=== PATIENT | female | born 1940 | race Caucasian/White ===

== ENCOUNTER 2025-03-11 08:35 | Outpatient (CLI) | payer MEDICARE, SELFPAY ==
--- NOTE | ~2025-03-11 | CT_ITS ---
CT of the Abdomen and Pelvis: Indication: Hydronephrosis Technique: 2.5 mm axial scans were obtained through the abdomen and pelvis prior to and following in travenous administration of 130 cc of Omnipaque 350. Dose reduction technique was used on this scan b y utilizing automated exposure control and iterative reconstruction technique. The dose-length produc t (DLP) was 2219.56 mGy-cm. Findings: Scans through the lung bases are unremarkable. The liver, spleen, pancreas, gallbladder, adrenals and right kidney are within normal limits. Left pa rapelvic renal cysts are present. There are atherosclerotic calcifications of the aorta. No lymphade nopathy. No bowel obstruction or bowel wall thickening. There is no evidence to suggest acute appendicitis. Images through the pelvis were performed. Urinary bladder unremarkable. Status post hysterectomy. No pelvic mass. No ascites. Impression: No hydronephrosis. Left parapelvic renal cysts. Reviewed, dictated and finalized at [facility]. Impression: No hydronephrosis. Left parapelvic renal cysts.
--- OUTSIDE RECORDS SUMMARY | 2025-03-11 08:54 | XMS_ITS | Encounter Summary ---
Author Organization [facility] Address [facility] [place] [address] Care Team Providers Care Hand Bookbinder Name Role Phone Durga Fischer MD Primary Care Provider + Reason for Visit * Auth/Cert Specialty Diagnoses / Procedures Referred By Contac t Referred To Contact Diagnoses Family history of colon cancer Personal history of colonic polyps Encounter for screening colonoscopy Family history of colon cancer [Z80.0] Personal history of colonic polyps [Z86.010] Encounter for screening colonoscopy [Z12.11] Procedures VA COLONOSCOPY FLX DX W/COLLJ SPEC WHEN PFRMD COLONOSCOPY Referral ID Status Reason Start Date Expiration Date Visits Re quested Visits Authorized [id number] 1 1 Encounter Details Date Type Department Care Team (Late st Contact Info) Description 01/28/2025 Hospital Encounter [facility] [address] [place] [address] Darian Sauer MD [address] [place] [address] [facility] [address] [place] [address] Social History Tobacco Use Types Packs/Day Years Used Date Smoking Tobacco: Never Smokeless Tobacco: Never Alcohol Use Standard Drinks/Week Comments No 0 (1 standard drink = 0.6 oz pur e alcohol) Comments No Sex and Gender Information Value Date Recorded Sex Assigned at Not on file 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 Gender Identity Not on file Sexual Orientation Not on file documented as of this encounter Plan of Treatment Not on file documented as of this encounter Visit Diagnoses Diagnosis Family history of colon cancer Family history of malignant neoplasm of gastrointestinal tract Personal history of colonic polyps Encounter for screening colonoscopy documented in this encounter Admitting Diagnoses Diagnosis Family history of colon cancer Family history of malignant neoplasm of gastrointestinal tract Personal history of colonic polyps Encounter for screening colonoscopy documented in this encounter Care Teams Hand Bookbinder Relationship Specialty Start Date End Date Durga Fischer MD [address] [place] [place] [address] PCP - General Internal Medicine 04/29/24 documented as of this encounter
--- OUTSIDE RECORDS SUMMARY | 2025-03-11 08:55 | XMS_ITS | Encounter Summary ---
Author Organization [facility] Address [address] [place] [address] Phone Care Team Providers Care Cotton Washer Name Role Phone Ronn Del Valle MD Primary Care Provider [phone] Graham Clemens MD Unavailable Selma Cadet MD Unavailable [phone] Ramesh Weiss MD Unavailable [phone] Geraldine Blue MD Unavailable [phone] Fernando Gonzales MD Unavailable Katey Castillo MD Unavailable [phone] Durga Fischer MD Primary Care Provider [phone] Reason for Visit * Reason Comments Medication Refill Encounter Details Date Type Department Care Team (Late st Contact Info) Description 12/25/2020 Refill [facility] [address] [place] [address] Ronn Del Valle MD [address] [place] [address] Medication Refill Social History Tobacco Use Types Packs/Day Years Used Date Smoking Tobacco: Former Smokeless Tobacco: Former Alcohol Use Standard Drinks/Week Comments No 0 (1 standard drink = 0.6 oz pur e alcohol) PHQ-2 Answer Date Recorded PHQ-2 Score 0 07/26/2019 Sexually Active Control Partners Comments Never Comments No Sex and Gender Information Value Date Recorded Sex Assigned at Not on file Legal Sex Female 8:52 PM CDT Gender Identity Not on file Sexual Orientation Not on file documented as of this encounter Plan of Treatment Not on file documented as of this encounter Visit Diagnoses Not on filedocumented in this encounter Additional Health Concerns Infection Onset Date Last Indicated Resolved Time COVID - 19 07/22/2021 07/22/2021 07/29/2021 7:03 AM CDT Assessment Noted Time PHQ-9 Depression Total Score: 0 12/04/19 20 9:00 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 documented as of this encounter Care Teams Cotton Washer Relationship Specialty Start Date End Date Ronn Del Valle MD [address] [place] [address] PCP - General Internal Medicine 03/14/16 05/07/24 Durga Fischer MD [address] [place] [address] PCP - General Internal Medicine 05/08/24 Graham Clemens MD [address] [place] [address] Consulting Physician Orthopaedic Sports Medicine 05/29/17 Selma Cadet MD [address] [place] [address] Consulting Physician Dermatology 03/17/18 Ramesh Weiss MD [address] [place] [address] Consulting Physician Urology 03/17/18 Geraldine Blue MD [address] [facility] [address] [place] [address] Consulting Physician Neurological Surgery 05/27/19 [place] [address] [facility] [address] [address] Consulting Physician Pain Medicine-Pain Management 04/01/20 Katey Castillo MD [address] [facility] [address] [address] Consulting Physician Plastic Surgery 03/28/22 documented as of this encounter
--- OUTSIDE RECORDS SUMMARY | 2025-03-11 08:55 | XMS_ITS | Clinical Summary ---
Author Organization [facility] Address [address] [place] [address] Phone Care Team Providers Care Patient Registration Specialist Name Role Phone Graham Clemens MD Unavailable [phone] Selma Cadet MD Unavailable [phone] Ramesh Weiss MD Unavailable Geraldine Blue MD Unavailable [phone] Fernando Gonzales MD Unavailable Katey Castillo MD Unavailable [phone] Durga Fischer MD Primary Care Provider [phone] Allergies Active Allergy Reactions Criticality Noted Date Comments Codeine Hallucinations 03/14/2016 Medications calcium carbonate-vitamin D 600-400 MG-UNIT Tablet Take 1 Tablet by mouth daily. Active TRIAMCINOLONE ACETONIDE, TOP, EX by Intra-articu lar route. Active pantoprazole (PROTONIX) 40 MG Tablet Delayed ResponseIndications :Gastroesophageal reflux disease without esophagitis Take 1 Tablet by mouth daily. 90 Tablet 3 3 Active fluticasone (FLONASE) 50 MCG/ACT SuspensionIndicatio ns:PNAR (perennial non-allergic rhinitis) 2 sprays in each nostril once daily (best after shower/ bath) 47.4 mL 3 3 Active tolterodine (DETROL LA) 4 MG CAPSULE SR 24 HRIndications:Urge urinary incontinence TAKE 1 CAPSULE NIGHTLY 90 Capsule 3 3 Active ipratropium (ATROVENT) 0.03 % SolutionIndications :PNAR (perennial non-allergic rhinitis) 2 Sprays by Nasal route 2 times daily. 30 mL 2 3 Active simvastatin (ZOCOR) 40 MG TabletIndications:M ixed hyperlipidemia TAKE 1 TABLET EVERY EVENING 90 Tablet 3 4 Active Gemtesa 75 MG Tablet 4 Active carvedilol (COREG) 25 MG Tablet TAKE 1 TABLET TWICE A DAY 180 Tablet 3 4 Active meloxicam (MOBIC) 15 MG TabletIndications:A rthritis TAKE 1 TABLET DAILY 90 Tablet 4 Active Active Problems Problem Noted Date Diagnosed Date Peripheral polyneuropathy 06/07/2023 Gastroesophageal reflux disease without esophagi tis 06/07/2023 PNAR (perennial non-allergic rhinitis) 3 Irritant contact dermatitis 04/16/2023 Irritable bowel syndrome with constipation 10/17 Trochanteric bursitis of left hip 03/28/2022 Numbness and tingling in both hands 02/26/2022 Spinal stenosis of lumbar re gion without neurogenic claudication 10/07/2018 Idiopathic peripheral neuropathy 05/22/2016 Urge urinary incontinence 05/22/2016 Varicose veins of both lower extremities 015 Asthma 04/10/2014 Overview (10/23/2018): Overview: Asthma Hypertension, essential Mixed hyperlipidemia Arthritis Resolved Problems Problem Noted Date Diagnosed Date Resolved Date Complication of surgical procedure 03/28/2022 11/11/2023 Adenomatous polyp of colon 09/27/2012 0 08/22/2020 Overview (10/23/2018): Overview: Adenomatous colon polyp Immunizations Immunization Administration Dates Next Due Covid-19, Mrna, Lnp-s, PF, 1 00 mcg/0.5 mL Dose (Moderna) 02/03/2021,01/06/2021 Influenza Vaccine greater than 3 yrs 08/24/2016, 09/15/2015 Influenza Vaccine, Quadrivalent, PF 08/18/2018,1 Influenza, High-dose, Quadrivalent 08/07/2023,,08/11/2020 Influenza, Injectable, Mdck,quadrivalent,with Preservative 08/25/2019 Influenza, Quadrivalent, Adjuvanted 08/14/2022 Influenza, Seasonal, Injecta ble, Undefined 08/14/2018,08/24/2016,08/10/2015,08/27,08/12/2013 Influenza, high-dose, trivalent, PF 08/11/2020,0 08/06/2016,08/03/2016 Pneumococcal Vaccine - 13 Valent 07/26/2016,10/26 Pneumococcal Vaccine Adult - 23 Valent 2,11/25/1999 Pneumococcal conjugate PCV20 , polysaccharide [id number] conjugate, adjuvant, PF 08/07/2023 TDAP Vaccine 10/28/2015 Td Vaccine (preservative free) 01/07/2004 Zoster Vaccine, live 07/31/2013 Family History Medical History Relation Name Comments Congestive Heart Failure Father Heart Attack Mother Cancer Sister 2 Throat Relation Name Status Comments Father Mother Sister 1 Alive Sister 2 Social History Tobacco Use Types Packs/Day Years Used Date Smoking Tobacco: Former Smokeless Tobacco: Former Tobacco Cessation:Counseling Given: Not Answered Alcohol Use Standard Drinks/Week Comments No 0 (1 standard drink = 0.6 oz pur e alcohol) PHQ-2 Answer Date Recorded Total Score - Questions 1-9 0 02/23 Sexually Active Control Partners Comments Never Comments No Sex and Gender Information Value Date Recorded Sex Assigned at Not on file Legal Sex Female 8:52 PM CDT Gender Identity Not on file Sexual Orientation Not on file Last Filed Vital Signs Vital Sign Reading Time Taken Comments Blood Pressure 132/80 03/06/2024 2:39 PM CDT Pulse 80 03/06/2024 2:39 PM CDT Temperature 36.4 C (97.5 F) 03/06/2024 2:39 PM CDT Respiratory Rate 14 03/06/2024 2:39 PM CDT Oxygen Saturation 98% 03/06/2024 2:39 PM CDT Inhaled Oxygen Concentration - - Weight 90.4 kg (199 lb 6.4 oz) 03/06/2024 2:39 P M CDT Height 170.2 cm (5' 7 ) 03/06/2024 2:39 PM CDT Body Mass Index 31.23 03/06/2024 2:39 PM CDT Plan of Treatment Health Maintenance Due Date Last Done Comments Zoster Immunization (2 of 3) 09/25/2013 07/31/2013 Respiratory Syncytial Virus (RSV) Immunization (Adult) (1 - 1-dose 75+ series) 2015 DEXA Bone Density 12/04/2020 12/04/2018, , 09/02/2014, Additional history exists Influenza Immunization (#1) 07/26/202407/26, 08/14/2022, 08/14/2021, Additional history exists SARS-COV-2 Immunization ( season) 2024 08/29/2023, 08/14/2022, 02/23/2022, Additional history exists Td Immunization Every 10 Years (Adults With 1 Tdap) 10/28/2025 10/28/2015, 01/07/2004 Pneumococcal Immunization (50+ years) Completed 08/07/2023, 07/26/2016, 11/14/2015, Additional history exists Pneumococcal Immunization Combined Discontinued 08/07/2023, 07/26/2016, 11/14/2015, Additional history exists Hepatitis C Virus (HCV) Screening Completed 11/11/2023 Hepatitis B Immunization Aged Out No longer eligible based on patient's age to complete this topic Meningococcal Immunization (ACWY) Aged Out No longer eligible based on patient's age to complete this topic Rotavirus Immunization Aged Out No lo nger eligible based on patient's age to complete this topic Procedures Procedure Name Priority Date/Time Associated Diagnosis Comments UROLOGY CONSULT 02/24/2025 12:00 AM CDT HEPATITIS C ANTIBODY Routine 11/11/2023 9:49 AM ART LIBRARIAN Encounter for hepatitis C screening test for low risk patient DEXA SCAN Routine 12/04/2018 from Last 3 Months or Most Recently Relevant to Health Maintenance Results * UROLOGY CONSULT (02/24/2025 12:00 AM CDT) 02/24/2025 us Provider Scan GENERIC SCAN ORDERS CONSULT Kari l Result SCAN * HEPATITIS C ANTIBODY (11/11/2023 9:49 AM ART LIBRARIAN) hepatitis C antibody 0.06 <1 S/CO [facility] ARCH [id number] B 11/11/2023 8:36 PM ART LIBRARIAN [facility] Comment: Signal/Cutoff ratio < 0.79 is Nondetected Signal/Cutoff ratio 0.80-0.99 is Grayzone Signal/Cutoff ratio > 0.99 is Detected Supplemental assays are recommended if signal/cutoff ratio is >/=1.00. Signal/cutoff ratio result >/= 5.00 is 97% predictive of positivity for recombinant immunoblot assay (RIBA) and will be reported to the [place] Department of Public Health as required. Blood Venipuncture / Unknown 11/11/2023 9:49 AM ART LIBRARIAN 11/11/2023 9:49 AM ART LIBRARIAN us Ronn Del Valle MD CHEMISTRY ORDERABLES Kari l Result Performing Organization Address City/[facility]/ZIP Co de Phone Number [facility] [address] [place] [address], [place] * DEXA SCAN (12/04/2018) Anatomical Region Laterality Modality Other us Geraldine Blue MD MA - IMAGING Final Result from Last 3 Months or Most Recently Relevant to Health Maintenance Insurance [facility]IC[facility] Care Teams Patient Registration Specialist Relationship Specialty Start Date End Date Durga Fischer MD [address] [place] [address] PCP - General Internal Medicine 05/08/24 Graham Clemens MD Consulting Physician Orthopaedic Sports Medicine 05/29/17 Selma Cadet MD [address] [place] [address] Consulting Physician Dermatology 03/17/18 Ramesh Weiss MD [address] [place] [address] Consulting Physician Urology 03/17/18 Geraldine Blue MD [address] [facility] [address] [place], [place] [address] Consulting Physician Neurological Surgery 05/27/19 [place] [address] [place] [address] Consulting Physician Pain Medicine-Pain Management 04/01/20 Katey Castillo MD NPI: [id number] [place] [address] [address] [address] Consulting Physician Plastic Surgery 03/28/22
--- OUTSIDE RECORDS SUMMARY | 2025-03-11 08:55 | XMS_ITS | Encounter Summary ---
Author Organization [facility] Address [address] [place] [address] Phone Care Team Providers Care Anesthesiologist Attending Name Role Phone Ronn Del Valle MD Primary Care Provider [phone] Graham Clemens MD Unavailable Selma Cadet MD Unavailable [phone] Ramesh Weiss MD Unavailable Geraldine Bleu MD Unavailable [phone] Fernando Gonzales MD Unavailable Katey Castillo MD Unavailable [phone] Durga Fischer MD Primary Care Provider [phone] Reason for Visit * Reason Comments Medication Refill Encounter Details Date Type Department Care Team (Late st Contact Info) Description [facility] [address] [place] [address] Ronn Del Valle MD [address] [place] [address] Medication Refill Social History Tobacco Use Types Packs/Day Years Used Date Smoking Tobacco: Former Smokeless Tobacco: Former Alcohol Use Standard Drinks/Week Comments No 0 (1 standard drink = 0.6 oz pur e alcohol) PHQ-2 Answer Date Recorded Total Score - Questions 1-9 0 04/0 03/2021 Sexually Active Control Partners Comments Never Comments No Sex and Gender Information Value Date Recorded Sex Assigned at Not on file Legal Sex Female 8:52 PM CDT Gender Identity Not on file Sexual Orientation Not on file COVID-19 Exposure Response Date Recorded In the last month, have you been in contact with someone who was confirmed or suspected to have Coronavirus / COVID-19? No / Unsure 02/27/2021 8:23 AM CDT documented as of this encounter Plan of Treatment Not on file documented as of this encounter Visit Diagnoses Not on filedocumented in this encounter Additional Health Concerns Infection Onset Date Last Indicated Resolved Time COVID - 19 07/22/2021 07/22/2021 07/29/2021 7:03 AM CDT Assessment Noted Time PHQ-9 Depression Total Score: 0 02/28/20 8:00 AM CDT documented as of this encounter Care Teams Anesthesiologist Attending Relationship Specialty Start Date End Date Ronn Del Valle MD [address] [place] [address] PCP - General Internal Medicine 03/14/16 05/07/24 Durga Fischer MD [address] [place] [address] PCP - General Internal Medicine 05/08/24 Graham Clemens MD [address] [place] [address] Consulting Physician Orthopaedic Sports Medicine 05/29/17 Selma Cadet MD [address] [place] [address] Consulting Physician Dermatology 03/17/18 Ramesh Weiss MD [address] [place] [address] Consulting Physician Urology 03/17/18 Geraldine Blue MD [address] [facility] [address] [place], [place] [address] Consulting Physician Neurological Surgery 05/27/19 [place] [address] [address] [facility] [address] [place] [address] Consulting Physician Pain Medicine-Pain Management 04/01/20 Katey Castillo MD [address] [facility] [address] [address] Consulting Physician Plastic Surgery 03/28/22 documented as of this encounter
--- OUTSIDE RECORDS SUMMARY | 2025-03-11 08:55 | XMS_ITS | Patient Health Record ---
Author Organization [facility] Address [address] [address] Care Team Providers Care Diesel Electrician Name Role Phone Ronn Del Valle Primary Care Provider Unavail able PORSHA WARREN Unavailable [phone] Geraldine Blue MD Unavailable Unavailable Allergies Allergen (clinical drug ingredient) Drug/Non Drug Allergy documented on EMR Reaction Allergy Type Onset Date Status codeine Codeine (uncoded) Unknown Allergy Ac tive Reason For Referral No Information Medications Medication SIG (Take, Route, Fr equency, Duration) Notes Start Date End Date Status Carvedilol 25 MG twice Orally daily Active Simvastatin 40 MG 1 tablet in the even ing Orally Once a day Active Indapamide 1.25 MG 1 tablet in the morn ing Orally Once a day Active Meloxicam 15 MG 1 capsule Orally Onc e a day for 90 days Active Gabapentin 300 MG 1 capsule Orally TID . Start with One cap at bedtime x1 week, then increase to 2 at PM x1 week. Then increase to 1 in AM and 2 in PM. 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) Active confirmed Problem [id number] Primary osteoarthritis of left knee (M17.12) Active confirmed Problem 95150094 Post-laminectomy syndrome (M96.1) Active confirmed Problem 40042036 Peripheral polyneuropathy (G62.9) Active confirmed Problem 95486830 Spinal stenosis of lumbar region without neurogenic claudication (M48.061) Active confirmed Problem 6258218 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 Problem 065345650 Osteoarthrosis, 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) Active confirmed Plan Of Treatment No Information Insurance Providers Payer Name Payer Address Payer Phone Subscriber Number Group Number Insured Name Patient Relationship to Insured Coverage Start Date Coverage End Date MEDIC[place] [address] [address] [place] [address] [id number] BENEDICTO CHAPARRO Self - patient is the insured [facility] [address] [place] [address] [id number] BENEDICTO CHAPARRO Self - patient is the insured Medical (General) History Medical History History ICD Code Hypertension High cholesterol Surgical History Surgery Date(Month/Year) Hernia 2017
--- OUTSIDE RECORDS SUMMARY | 2025-03-11 08:55 | XMS_ITS | CONTINUITY OF CARE DOCUMENT ---
Author Name nannettemedina, nannettemedina Address Unknown Organization [facility] Address [address] [facility] [address] [place] [address] Phone [phone] Care Team Providers Care Resolution Rep Name Role Phone Amarjit Otoole MD Unavailable VINCENT CASTILLO MD Unavailable VINCENT CASTILLO MD Unavailable PROBLEMS Condition Status Date Provider Notes Cardiology examination active Amarjit Otoole MD Hyperlipidemia active Amarjit Otoole MD Hypertension active Amarjit Otoole MD Decreased dorsalis pedis pulse- L active Us cleo Otoole MD Neuropathy active Amarjit Otoole MD Leg numbness, L active Amarjit Otoole MD ENCOUNTERS Date Type Provider Location Encounter Diag nosis 12/17 - 12/17 In-person encounter Office Visit Amarjit Otoole MD [facility] - 11/25 In-person encounter Office Visit Amarjit Otoole MD [facility] Cardiology examinationHyperlipidemiaHypertensionDecreased dorsalis pedis pulse- LNeuropathyLeg numbness, L VITAL SIGNS Date Observation Value Provider Body Mass Index (Ratio) 30.54 kg/m2 Tamela Otoole MD respiratory rate E&M 12 /min Cyril vee blood pressure, diastolic 82 mm[Hg] Bhavya Fitchanan blood pressure, systolic 136 mm[Hg] Vip in [facility] oxygen saturation, oximetry 96 % [facility] pulse rate 82 /min [facility] weight E&M 195 [lb_av] [facility] blood pressure, cuff size regular Vi jeromy [facility] height E&M 67 [in_i] [facility] Body Mass Index (Ratio) 31.63 kg/m2 Tamela Otoole MD blood pressure, diastolic 86 mm[Hg] Li nkLogic blood pressure, systolic 138 mm[Hg] Marylu kLogic blood pressure, cuff size regular Jose courtney [facility] blood pressure, diastolic 86 mm[Hg] Jose harleya [facility] blood pressure, systolic 138 mm[Hg] Isatu la [facility], oximetry 96 % Val [facility] pulse rate 64 /min Val [facility] height E&M 67 [in_i] Val [facility] weight E&M 202 [lb_av] Val Ruple ALLERGIES No Known Drug Allergies HISTORY OF MEDICATION USE Medication Status Instructions Dates Provider Indications Com ments nebivolol 20 mg tablet active Amarjit Otoole MD pantoprazole 40 mg tablet,delayed release (DR/EC) active Amarjit Otoole MD simvastatin 40 mg tablet active Amarjit Otoole MD meloxicam 15 mg tablet active Amarjit Otoole MD INSURANCE PROVIDERS Payer name Policy type / Coverage type [place] [employer] democrat ID [facility] [id number] [place] MEDIC[place] Medicare [id number] TREATMENT PLAN Date Name Performer Cardiology: H er updated medication list for this problem includes: Simvastatin 40 Mg Tablet (Simvastatin) T his visit has been a part of the consistent, comprehensive, and ongoing management of the chronic medical condition(s) listed above for the patient. Amarjit Otoole MD Cardiology: H er updated medication list for this problem includes: Nebivolol 20 Mg Tablet (Nebivolol) BP today: 136/82 P rior BP: 138/86 (09/24/2024) This visit has been a part of the consistent, comprehensive, and ongoing management of the chronic medical condition(s) listed above for the patient. Amarjit Otoole MD Cardiology:multifact orial, but in part due to her neuropathy. I recommend she has neurology consult as she continues to experience difficulties with walking Amarjit Otoole MD Cardiology:Recommend a consult with neuro Amarjit Otoole MD Cardiology:ABIs were unremarkabl e Amarjit Otoole MD Cardiology:check venous reflux a nd JUN Amarjit Otoole MD Cardiology:Will chec k a venous reflux and JUN Amarjit Otoole MD Date Name Venous Doppler Bilat eral LE - Reflux Arterial Duplex Bi-L ower EX HISTORY OF PROCEDURES Procedure Date Procedure Name Provider Procedure Notes S tatus Complex e/m visit add on Amarjit Otoole MD completed EKG Amarjit Otoole MD completed
--- OUTSIDE RECORDS SUMMARY | 2025-03-11 08:55 | XMS_ITS | Clinical Summary ---
Author Organization [facility] Address [address] [place] [address] Phone Care Team Providers Care Director Home Health Name Role Phone Ronn Del Valle MD Primary Care Provider Allergies Active Allergy Reactions Criticality Noted Date Comments Codeine Anaphylaxis High 09/29/2018 Medications carvedilol (COREG) 25 mg tablet Take 25 mg by mouth 2 times daily with meals. Active gabapentin (NEURONTIN) 300 mg capsule Take 300 mg by mouth daily at bedtime. Active indapamide (LOZOL) 1.25 mg tablet Take 1.25 mg by mouth daily early morning babysitter. Active meloxicam (MOBIC) 15 mg tablet Take 15 mg by mouth daily. Active simvastatin (ZOCOR) 40 mg tablet Take 40 mg by mouth late in the day. Active tolterodine (DETROL LA) 2 mg Extended Release 24 hour capsule Take 2 mg by mouth daily. Active cyanocobalamin, vitamin B-12, (VITAMIN B-12 ORAL) Take 1,000 Units by mouth daily. Active omega-3 fatty acids (FISH OIL ORAL) Take 1,000 Units by mouth daily. Active calcium carbonate/vitam in D3 (CALCIUM + D ORAL) Take 600 mg by mouth daily. Active vitamin E 400 unit capsule Take 400 Units by mouth daily. Active HYDROcodone-charlotte taminophen (NORCO) 5-325 mg tablet Take 1-2 Tablets by mouth every 4 hours as needed for Pain. Max Daily Amount: 12 Tablets 60 Tablet 10/06/2018 Active tiZANidine (ZANAFLEX) 4 mg Tablet Take 1 Tablet (4 mg) by mouth every 6 hours as needed for Spasm. 60 Tablet 1 10/06/2018 Active Active Problems Problem Noted Date Diagnosed Date Lumbar stenosis 10/07/2018 Immunizations Immunization Administration Dates Next Due Influenza Seasonal Unspecified Formulation IM Social History Tobacco Use Types Packs/Day Years Used Date Smoking Tobacco: Former Cigarettes Q uit: 09/29/1968 Smokeless Tobacco: Never Alcohol Use Standard Drinks/Week Comments No 0 (1 standard drink = 0.6 oz pur e alcohol) Comments No Sex and Gender Information Value Date Recorded Sex Assigned at Not on file Legal Sex Female 11:08 AM CDT Gender Identity Not on file Sexual Orientation Not on file Last Filed Vital Signs Vital Sign Reading Time Taken Comments Blood Pressure 91/52 10/07/2018 8:56 AM SCREW DRIVER OPERATOR Pulse 70 10/07/2018 8:19 AM SCREW DRIVER OPERATOR Temperature 36.4 C (97.6 F) 10/07/2018 8:19 AM SCREW DRIVER OPERATOR Respiratory Rate 18 10/07/2018 8:19 AM SCREW DRIVER OPERATOR Oxygen Saturation 95% 10/07/2018 8:19 AM SCREW DRIVER OPERATOR Inhaled Oxygen Concentration - - Weight 89.8 kg (198 lb) 10/06/2018 8:20 AM SCREW DRIVER OPERATOR Height 170.2 cm (5' 7 ) 10/06/2018 8:20 AM SCREW DRIVER OPERATOR Body Mass Index 31.01 10/06/2018 8:20 AM SCREW DRIVER OPERATOR Plan of Treatment Health Maintenance Due Date Last Done Comments ZOSTER VACCINE (1 of 2) 1990 RSV VACCINE (60+ or ) (1 - 1-dose 75+ series) 2015 INFLUENZA VACCINE (#1) 2024 8, 08/14/2018, 08/26/2017, Additional history exists DTAP/TDAP/TD VACCINES (2 - T d or Tdap) 10/28/2025 10/28/2015, 01/07/2004 PNEUMOCOCCAL VACCINE 50+ YEARS Completed 0 07/26/2016, 11/14/2015, 09/19/2012, Additional history exists OSTEOPOROSIS SCREENING Completed 12/04/2018 Medical Devices Implanted Type Area Signal Processing Engineer Device Identifier Shelf Expiration Date Model / Serial / Lot Barrier Gelfilm [id number] - [id number] Implanted:Qty : 1 on 10/06/2018 by Geraldine Blue MD at [facility] Adhesion Barrier Spine Lumbar PFIZER- PHARM [id number] 10/24/2020 [id number] 703-[id number] / / [id number] Hemostatic Surgiflo 8ml W/Thrombin 2994 - [id number] Implanted:Qty : 1 on 10/06/2018 by Geraldine Blue MD at [facility] Hemostatic Spine Lumbar [employer] 03/24/2020 [id number] / / [id number] Procedures Procedure Name Priority Date/Time Associated Diagnosis Comments XR DEXA BONE DENSITY AXIAL 1 OR MORE SITES Routine 12/04/2018 8:59 AM SCREW DRIVER OPERATOR Osteoporosis from Last 3 Months or Most Recently Relevant to Health Maintenance Results * XR DEXA BONE DENSITY AXIAL 1 OR MORE SITES (12/04/2018 8:59 AM SCREW DRIVER OPERATOR) Anatomical Region Laterality Modality Digital Radiogra phy 12/04/2018 8:59 AM SCREW DRIVER OPERATOR Impressions 12/04/2018 9:03 AM SCREW DRIVER OPERATOR IMPRESSION: This is a summary page. Please refer to the complete detailed report found in the Imaging Section of the [facility] EMR. Normal BMD. Lumbar Spine: T-Score: 1.5 Left Femoral Neck: T-Score: -0.8 Left Total Femur: T-Score: -0.4 Right Femoral Neck: T-Score: -0.7 Right Total Femur: T-Score: -0.2 Left Forearm: T-Score: -0.5 Comments: L3-L4 excluded because of statistical variation. Statistical change: No prior exam is available. FRAX FRACTURE RISK ASSESSMENT: Risk factors: History of fracture as an adult. 10 Year Probability Of Fracture Major Osteoporotic: 14.8 % Hip: 2.1 % Comparison population: [place], Race: White A major osteoporotic fracture is defined as a fracture of the spine, forearm, hip or shoulder. Definitions: Normal: T-score above -1.0 Osteopenia T-score less than -1.0 and above -2.5 Osteoporosis: T-score <= -2.5 Follow-up Recommendations: Patients without high risk factors for osteoporosis T-score -1.0 to -1.5 - Consider repeat BMD in 5-10 years T-score -1.5 to - 2.0 - Consider repeat BMD in 3-5 years T-score -2.0 to - 2.5 - Consider repeat BMD every 2 years Patients on treatment for osteoporosis 1-2 years after initiation of treatment and every 2 years thereafter D[address] Dr[address] Homero Farley MD DICTATION LOCATION: 12/04/2018 9:03 AM SCREW DRIVER OPERATOR EXAMINATION: BONE DENSITY STUDY (DXA) DATE: 12/04/2018 8:59 AM HISTORY: 78 years Female. Postmenopausal. PROCEDURE: Planar images of the lumbar spine, hip(s) and forearm(s) using a LUNAR DEXA scanner for bone mineral density determination (BMD). FINDINGS: Lumbar Spine (L1-L2): T-Score: 1.5 1.340 g/sq cm Left Femoral Neck: T-Score: -0.8 0.928 g/sq cm Left Total Femur: T-Score: -0.4 Right Femoral Neck: T-Score: -0.7 0.946 g/sq cm Right Total Femur: T-Score: -0.2 Left 33% Radius: T-Score: -0.5 0.829 g/sq cm Procedure Note Homero Farley MD - 12/04/2018 EXAMINATION: BONE DENSITY STUDY (DXA) DATE: 12/04/2018 8:59 AM HISTORY: 78 years Female. Postmenopausal. PROCEDURE: Planar images of the lumbar spine, hip(s) and forearm(s) using a LUNAR DEXA scanner for bone mineral density determination (BMD). FINDINGS: Lumbar Spine (L1-L2): T-Score: 1.5 1.340 g/sq cm Left Femoral Neck: T-Score: -0.8 0.928 g/sq cm Left Total Femur: T-Score: -0.4 Right Femoral Neck: T-Score: -0.7 0.946 g/sq cm Right Total Femur: T-Score: -0.2 Left 33% Radius: T-Score: -0.5 0.829 g/sq cm IMPRESSION: This is a summary page. Please refer to the complete detailed report found in the Imaging Section of the [facility] EMR. Normal BMD. Lumbar Spine: T-Score: 1.5 Left Femoral Neck: T-Score: -0.8 Left Total Femur: T-Score: -0.4 Right Femoral Neck: T-Score: -0.7 Right Total Femur: T-Score: -0.2 Left Forearm: T-Score: -0.5 Comments: L3-L4 excluded because of statistical variation. Statistical change: No prior exam is available. FRAX FRACTURE RISK ASSESSMENT: Risk factors: History of fracture as an adult. 10 Year Probability Of Fracture Major Osteoporotic: 14.8 % Hip: 2.1 % Comparison population: [place], Race: White A major osteoporotic fracture is defined as a fracture of the spine, forearm, hip or shoulder. Definitions: Normal: T-score above -1.0 Osteopenia T-score less than -1.0 and above -2.5 Osteoporosis: T-score <= -2.5 Follow-up Recommendations: Patients without high risk factors for osteoporosis T-score -1.0 to -1.5 - Consider repeat BMD in 5-10 years T-score -1.5 to - 2.0 - Consider repeat BMD in 3-5 years T-score -2.0 to - 2.5 - Consider repeat BMD every 2 years Patients on treatment for osteoporosis 1-2 years after initiation of treatment and every 2 years thereafter D[address] by Dr. Homero Farley MD DICTATION LOCATION: 1 Geraldine Blue MD DIAGNOSTIC IMAGING ORDERABLES F inal Result from Last 3 Months or Most Recently Relevant to Health Maintenance Insurance MEDICARE PART A AND B [facility] Advance Directives For more information, please contact: [phone] * Full Code (Latest Code Status on File) Date Activated Date Inactivated Comments 10/06/2018 9:44 AM 10/07/2018 2:10 PM * Full Code Date Activated Date Inactivated Comments 10/06/2018 8:49 AM 10/06/2018 9:43 AM Care Teams Director Home Health Relationship Specialty Start Date End Date Ronn Del Valle MD [address] [address] PCP - General Internal Medicine 09/29/18
--- OUTSIDE RECORDS SUMMARY | 2025-03-11 08:55 | XMS_ITS | Encounter Summary ---
Author Organization [facility] Address [address] [place] [address] Phone Care Team Providers Care Television Parts Tester Name Role Phone Ronn Del Valle MD Primary Care Provider [phone] Graham Clemens MD Unavailable [phone] Selma Cadet MD Unavailable [phone] Ramesh Weiss MD Unavailable Geraldine Blue MD Unavailable [phone] Fernando Gonzales MD Unavailable Katey Castillo MD Unavailable [phone] Durga Fischer MD Primary Care Provider [phone] Reason for Visit * Reason Comments Medication Refill Encounter Details Date Type Department Care Team (Late st Contact Info) Description 02/18/2024 Refill [facility] - Primary Care - Emily [address] [place] [address] Ronn Del Valle MD [address] [place] [address] Medication Refill Social History Tobacco Use Types Packs/Day Years Used Date Smoking Tobacco: Former Smokeless Tobacco: Former Alcohol Use Standard Drinks/Week Comments No 0 (1 standard drink = 0.6 oz pur e alcohol) PHQ-2 Answer Date Recorded Total Score - Questions 1-9 0 05/0 02/2022 Sexually Active Control Partners Comments Never Comments No Sex and Gender Information Value Date Recorded Sex Assigned at Not on file Legal Sex Female 8:52 PM CDT Gender Identity Not on file Sexual Orientation Not on file documented as of this encounter Miscellaneous Notes * Telephone Encounter - Wai Méndez RN - 02/19/2024 8:12 AM CDT Medication(s) [facility] and signed [facility] Medication Refill Standing Order for Pediatricand Adult Patients. Requested Prescriptions Pending Prescriptions Disp Refills simvastatin (ZOCOR) 40 MG Tablet [Pharmacy Med Name: SIMVASTATIN TABS 40MG] 90 Tablet 3 Sig: TAKE 1 TABLET EVERY EVENING Hmg CoA Reductase Inhibitors Protocol Passed - 02/18/2024 11:34 PM Passed - Visit with relevant provider in past 12 months or upcoming 90 days Recent Visits Date Type Provider Dept 01/24/24 Office Visit Maira Michel APRN, MACHINE WOOD SANDER [facility] 11/20/23 Office Visit Selma Tran MD [facility] 11/11/23 Office Visit Ronn Del Valle MD [facility] 06/07/23 Office Visit Ronn Del Valle MD [facility] 04/16/23 Office Visit Ronn Del Valle MD [facility] Showing recent visits within past 365 days and meeting all other requirements Future Appointments No visits were found meeting these conditions. Showing future appointments within next 90 days and meeting all other requirements Passed - Lipid panel in past 12 months LDL Date Value Ref Range Status 11/11/2023 77 <130 mg/dL Final HDL CHOLESTEROL Date Value Ref Range Status 11/11/2023 61 >40 mg/dL Final CHOLESTEROL Date Value Ref Range Status 11/11/2023 152 <200 mg/dL Final TRIGLYCERIDES Date Value Ref Range Status 11/11/2023 71 <150 mg/dL Final VLDL Date Value Ref Range Status 11/11/2023 14 10 - 50 mg/dL Final CHOL/HDL RATIO Date Value Ref Range Status 11/11/2023 2.5 0.0 - 4.4 Final NON-HDL CHOLESTEROL Date Value Ref Range Status 11/11/2023 91 <130 mg/dL Final Passed - CMP in past 12 months SODIUM Date Value Ref Range Status 11/11/2023 144 136 - 145 mmol/L Final POTASSIUM Date Value Ref Range Status 11/11/2023 4.1 3.5 - 5.1 mmol/L Final CHLORIDE Date Value Ref Range Status 11/11/2023 108 (H) 98 - 107 mmol/L Final CO2, VENOUS Date Value Ref Range Status 11/11/2023 25 22 - 30 mmol/L Final ANION GAP Date Value Ref Range Status 11/11/2023 15.1 <18.0 mmol/L Final GLUCOSE Date Value Ref Range Status 11/11/2023 106 (H) 70 - 99 mg/dL Final BUN Date Value Ref Range Status 11/11/2023 19 10 - 20 mg/dL Final CREATININE, BLOOD Date Value Ref Range Status 11/11/2023 0.80 0.60 - 1.00 mg/dL Final BUN/CREATININE RATIO Date Value Ref Range Status 11/11/2023 24 (H) 12 - 20 ratio Final TOTAL PROTEIN Date Value Ref Range Status 11/11/2023 6.9 6.3 - 8.2 g/dL Final ALBUMIN Date Value Ref Range Status 11/11/2023 4.1 3.5 - 5.0 g/dL Final A/G RATIO Date Value Ref Range Status 11/11/2023 1.5 1.0 - 2.2 Final CALCIUM Date Value Ref Range Status 11/11/2023 9.1 8.7 - 10.5 mg/dL Final T BILI Date Value Ref Range Status 11/11/2023 0.5 0.2 - 1.2 mg/dL Final SGOT (AST) Date Value Ref Range Status 11/11/2023 16 5 - 34 U/L Final SGPT (ALT) Date Value Ref Range Status 11/11/2023 10 0 - 55 U/L Final ALKALINE PHOSPHATASE Date Value Ref Range Status 11/11/2023 63 40 - 150 U/L Final GFR, EST. NONAFRICAN Date Value Ref Range Status 11/11/2023 >60 >=60 Final GFR, EST. Date Value Ref Range Status 11/11/2023 >60 >=60 Final GFR, ESTIMATED Date Value Ref Range Status 11/11/2023 >60 >=60 Final Comment: Creatinine Clearance is the preferred criteria for selecting drug dose adjustments in renally impaired patients. The GFR is provided as additional pertinent clinical information. GFR is reported in mL/min/1.73 sq m. Calculation based on the Chronic Kidney Disease Epidemiology Collaboration (CKD- EPI) equation refitwithout adjustment for race. IS THE PATIENT REQUIRED TO BE FASTING? Date Value Ref Range Status 11/11/2023 No Final documented in this encounter Plan of Treatment Not on file documented as of this encounter Visit Diagnoses Diagnosis Mixed hyperlipidemia documented in this encounter Additional Health Concerns Assessment Noted Time PHQ-9 Depression Total Score: 0 02/28/20 21 8:00 AM CDT documented as of this encounter Care Teams Television Parts Tester Relationship Specialty Start Date End Date Ronn Del Valle MD [address] [place] [address] PCP - General Internal Medicine 03/14/16 05/07/24 Durga Fischer MD [address] [place] [address] PCP - General Internal Medicine 05/08/24 Graham Clemens MD [address] [place] [address] Consulting Physician Orthopaedic Sports Medicine 05/29/17 Selma Cadet MD [address] [place] [address] Consulting Physician Dermatology 03/17/18 Ramesh Weiss MD [address] [place] [address] Consulting Physician Urology 03/17/18 Geraldine Blue MD [address] [place] [address] Consulting Physician Neurological Surgery 05/27/19 [place] [address] [facility] [address] [place] [address] Consulting Physician Pain Medicine-Pain Management 04/01/20 Katey Castillo MD [address] [facility] [address] [facility] [address] [place] [address] Consulting Physician Plastic Surgery 03/28/22 documented as of this encounter
--- OUTSIDE RECORDS SUMMARY | 2025-03-11 08:55 | XMS_ITS | Encounter Summary ---
Author Organization [facility] Address [address] [place] [address] Phone Care Team Providers Care Infantry Weapons Crewmember Name Role Phone Ronn Del Valle MD Primary Care Provider [phone] Graham Clemens MD Unavailable [phone] Selma Cadet MD Unavailable [phone] Ramesh Weiss MD Unavailable [phone] Geraldine Blue MD Unavailable [phone] Fernando Gonzales MD Unavailable Katey Castillo MD Unavailable [phone] Durga Fischer MD Primary Care Provider [phone] Reason for Visit * Reason Comments Medication Refill Encounter Details Date Type Department Care Team (Late st Contact Info) Description 03/10/2024 Refill [facility] - Primary Care - Emily [address] [place] [address] Ronn Del Valle MD [address] [place] [address] Medication Refill Social History Tobacco [...] encounter Miscellaneous Notes * Telephone Encounter - Venus Mcpherson RN - 03/11/2024 8:34 AM CDT Medication(s) refilled and signed [facility] Chronic Medication Refill Standing Order for Pediatricand Adult Patients. Requested Prescriptions Pending Prescriptions Disp Refills carvedilol (COREG) 25 MG Tablet [Pharmacy Med Name: CARVEDILOL TABS 25MG] 180 Tablet 3 Sig: TAKE 1 TABLET TWICE A DAY Beta-Blockers Protocol Passed - 03/10/2024 11:36 PM Passed - BP on record in the past year Clinician-entered: BP Readings from Last 3 Encounters: 03/06/24 132/80 01/24/24 170/80 11/20/23 118/74 Patient-entered: No data recorded Passed - Visit with relevant provider in past 12 months or upcoming 90 days Recent Visits Date Type Provider Dept 03/06/24 Office Visit Ronn Del Valle MD [facility] 01/24/24 Office Visit Maira Michel APRN, CNP [facility] 11/20/23 Office Visit Selma Tran MD [facility] 11/11/23 Office Visit Ronn Del Valle MD [facility] 06/07/23 Office Visit Ronn Del Valle MD [facility] 04/16/23 Office Visit Ronn Del Valle MD [facility] Showing recent visits within past 365 days and meeting all other requirements Future Appointments No visits were found meeting these conditions. Showing future appointments within next 90 days and meeting all other requirements documented in this encounter Plan of Treatment Not on file documented as of this encounter Visit Diagnoses Not on filedocumented in this encounter Additional Health Concerns Assessment Noted Time PHQ-9 Depression Total Score: 0 03/06/20 24 2:40 PM CDT documented as of this encounter Care Teams Infantry Weapons Crewmember Relationship Specialty Start Date End Date Ronn Del Valle MD [address] [place] [address] PCP - General Internal Medicine 03/14/16 05/07/24 Durga Fischer MD [address] [place] [address] PCP - General Internal Medicine 05/08/24 Graham Clemens MD [address] [place] [address] Consulting Physician Orthopaedic Sports Medicine 05/29/17 Selma Cadet MD [address] [place] [address] Consulting Physician Dermatology 03/17/18 Ramesh Weiss MD [address] [place] [address] Consulting Physician Urology 03/17/18 Geraldine Blue MD [address] [facility] [address] [place], [place] [id number] Consulting Physician Neurological Surgery 05/27/19 [place] [address] [address] [facility] [address] [place] [address] Consulting Physician Pain Medicine-Pain Management 04/01/20 Katey Castillo MD [address] [place] [address] [address] [address] Consulting Physician Plastic Surgery 03/28/22 documented as of this encounter
--- OUTSIDE RECORDS SUMMARY | 2025-03-11 08:55 | XMS_ITS | Encounter Summary ---
Author Organization [facility] Address [address] [place] [address] Phone Care Team Providers Care Heater Tender Name Role Phone Ronn Del Valle MD Primary Care Provider Graham Clemens MD Unavailable [phone] Selma Cadet MD Unavailable [phone] Ramesh Weiss MD Unavailable Geraldine Blue MD Unavailable [phone] Fernando Gonzales MD Unavailable Katey Castillo MD Unavailable [phone] Durga Fischer MD Primary Care Provider [phone] Reason for Visit * Reason Comments Medication Refill Encounter Details Date Type Department Care Team (Late st Contact Info) Description 02/28/2022 Refill [facility] - Primary Care - Emily [address] [place] [address] Ronn Del Valle MD [address] [place] [address] Medication Refill Social History Tobacco [...] encounter Miscellaneous Notes * Telephone Encounter - Lashawn Davila RN - 03/01/2022 8:33 AM CDT Medication approved and signed per standing order protocol. documented in this encounter Plan of Treatment Not on file documented as of this encounter Visit Diagnoses Diagnosis Mixed hyperlipidemia documented in this encounter Additional Health Concerns Assessment Noted Time PHQ-9 Depression Total Score: 0 02/28/20 21 8:00 AM CDT documented as of this encounter Care Teams Heater Tender Relationship Specialty Start Date End Date Ronn Del Valle MD [address] [place] [address] PCP - General Internal Medicine 03/14/16 05/07/24 Durga Fischer MD [address] [place] [address] PCP - General Internal Medicine 05/08/24 Graham Clemens MD [address] [place] [address] Consulting Physician Orthopaedic Sports Medicine 05/29/17 Selma Cadet MD [address] [place] [address] Consulting Physician Dermatology 03/17/18 Ramesh Weiss MD [address] [place] [address] Consulting Physician Urology 03/17/18 Geraldine Blue MD [address] [facility] [address] [place] [address] Consulting Physician Neurological Surgery 05/27/19 [place] [address] [facility] [address] [place] [address] Consulting Physician Pain Medicine-Pain Management 04/01/20 Katey Castillo MD [address] [facility] [address] [address] Consulting Physician Plastic Surgery 03/28/22 documented as of this encounter
--- OUTSIDE RECORDS SUMMARY | 2025-03-11 08:55 | XMS_ITS | Encounter Summary ---
Author Organization [facility] Address [address] [place] [address] Phone Care Team Providers Care Managing Principal Name Role Phone Ronn Del Valle MD Primary Care Provider [phone] Graham Clemens MD Unavailable Selma Cadet MD Unavailable [phone] Ramesh Weiss MD Unavailable Geraldine Blue MD Unavailable [phone] Fernando Gonzales MD Unavailable Katey Castillo MD Unavailable [phone] Durga Fischer MD Primary Care Provider [phone] Reason for Visit * Reason Comments Medication Refill Encounter Details Date Type Department Care Team (Late st Contact Info) Description 12/04/2020 [facility] [address] [place] [address] Ronn Del Valle MD [address] [place] [address] Medication Refill Social History Tobacco [...] Telephone Encounter - Lashawn Davila RN - 12/05/2020 11:14 AM RETAIL COORDINATOR Medication approved and signed per standing order protocol. [place] COORDINATOR * Telephone Encounter - Krys Ribeiro CMA - 12/05/2020 10:49 AM RETAIL COORDINATOR Rerouting [place] COORDINATOR documented in this encounter Plan of Treatment Not on file documented as of this encounter Visit Diagnoses Diagnosis Mixed hyperlipidemia- Primary documented in this encounter Additional Health Concerns Infection Onset Date Last Indicated Resolved Time COVID - 19 07/22/2021 07/22/2021 07/29/2021 7:03 AM CDT Assessment Noted Time PHQ-9 Depression Total Score: 0 12/04/19 20 9:00 AM RETAIL COORDINATOR documented as of this encounter Care Teams Managing Principal Relationship Specialty Start Date End Date Ronn Del Valle MD [address] [place] [address] PCP - General Internal Medicine 03/14/16 05/07/24 Durga Fischer MD [address] [place] [address] PCP - General Internal Medicine 05/08/24 Graham Clemens MD [address] [place] [address] Consulting Physician Orthopaedic Sports Medicine 05/29/17 Selma Cadet MD [address] [place] [address] Consulting Physician Dermatology 03/17/18 Ramesh Weiss MD [address] [place] [address] Consulting Physician Urology 03/17/18 Geraldine Blue MD [address] [facility] [address] [place], [place] [id number] Consulting Physician Neurological Surgery 05/27/19 [place] [address] [address] [facility] [address] [address] Consulting Physician Pain Medicine-Pain Management 04/01/20 Katey Castillo MD [address] [facility] [address] [address] Consulting Physician Plastic Surgery 03/28/22 documented as of this encounter
--- OUTSIDE RECORDS SUMMARY | 2025-03-11 08:55 | XMS_ITS | Referral Summary ---
Author Organization [facility] Address [address] [place] [address] Care Team Providers Care Chain Splitter Name Role Phone Durga Fischer MD Primary Care Provider + Encounters Date Type Department Care Team Description 02/02/2025 7:38 AM CDT - 02/02/2025 11:59 PM CDT Hospital Encounter [facility] [address] [place] [address] Abdominal pain, unspecified abdominal location Discharge Disposition: Discharge to home or self care 01/28/2025 Hospital Encounter [facility] [address] [place] [address] Darian Sauer MD 01/25/2025 Telephone [facility] Gastroenterology at [address] [place] [address] Jack Garza MA from Last 3 Months Allergies Active Allergy Reactions Criticality Noted Date Comments Codeine Other (See comments),Hallucinations ,Anaphylaxis High 03/14/2016 Reaction: Discomfort, , Medications DULoxetine DR (CYMBALTA) 20 mg capsule take 1 capsule by oral route 2 times every day 0 0 11/29/19 16 Active Additional Information Patient not taking.Reported on 06/03/2024 ondansetron ODT (ZOFRAN-ODT) 4 mg disintegrating tablet take 2 tablet by oral route every [address] on top of the tongue where they will dissolve, then swallow 0 0 11/29/19 16 Active Additional Information Patient not taking.Reported on 06/03/2024 calcium carbonate-vitamin D3 (CALCIUM 600 WITH VITAMIN D3) 600 mg(1,500mg) -500 unit capsule Take 2 capsule by mouth once daily with food 90 4 11/29/19 16 Active Additional Information Patient not taking.Reported on 06/03/2024 naproxen (NAPROSYN) 500 mg tablet take 1 tablet by oral route every day with food 90 3 12/08/19 16 Active Additional Information Patient not taking.Reported on 06/03/2024 aspirin 81 mg chewable tablet chew 1 tablet by oral route every day 90 3 09/01/20 14 Active Additional Information Patient not taking.Reported on 06/03/2024 ipratropium (ATROVENT) 0.03 % nasal spray spray 2 spray by intranasal route 2 times every day in each nostril 1 spray 2 09/01/20 14 Active traMADol (ULTRAM) 50 mg tablet take 1 tablet by oral route 2 times every day as needed 30 0 10/18/20 15 Active Additional Information Patient not taking.Reported on 06/03/[address] (CYMBALTA) 20 mg capsule take 1 - 3 capsule by oral route every bedtime One tablet nightly for one week then 2 tablets a second week then 3 tablets a third week 30 1 11/14/20 15 Active Additional Information Patient not taking.Reported on 06/03/2024 azelastine 0.15 % (205.5 mcg) spray,non-aerosol 07/16/20 17 Active mirabegron ER (MYRBETRIQ) 25 mg tablet extended release 24 hr Take by mouth. A ctive fluticasone (FLONASE) 50 mcg/actuation nasal spray 2 sprays in each nostril once daily (best after shower/ bath) 07/16/20 17 Active calcium carbonate-vitamin D3 1,250mg (500mg elemental) - 200 units per tablet Take 600 mg by mouth daily Active cyanocobalamin, vitamin B-12, 1,000 mcg/mL drops Take 1,000 Units by mouth daily Active vitamin E 400 unit capsule Take 1 capsule (400 Units total) by mouth daily Active calcium carbonate-vitamin D3 1,250mg (500mg elemental) - 200 units per tablet Take 600 mg by mouth daily Active cyanocobalamin, vitamin B-12, 1,000 mcg/mL drops Take 1,000 Units by mouth daily Active OMEGA-3 FATTY ACIDS-FISH OIL ORAL Take 1,000 Units by mouth daily Active TRIAMCINOLONE ACETONIDE TOP Inject into the joint every 3 (three) months Active calcium carbonate-vit D3-min 600 mg calcium- 400 unit tablet Take 1 tablet by mouth daily Active nitrofurantoin monohydrate (MACROBID) 100 mg capsule 01/29/20 19 Active carvedilol (COREG) 25 mg tablet Take 1 tablet (25 mg total) by mouth 2 times daily 04/09/20 18 Active gabapentin (NEURONTIN) 300 mg capsule Take 1 capsule (300 mg total) by mouth 3 times daily 10/23/20 18 Active HYDROcodone-acetam inophen (NORCO) 5-325 mg per tablet Take 1-2 tablets by mouth every 4 hours as needed 10/06/20 18 Active HYDROcodone-acetam inophen (NORCO) 5-325 mg per tablet 0 12/05/19 19 Active indapamide (LOZOL) 1.25 mg tablet 11/17/20 18 Active meloxicam (MOBIC) 15 mg tablet Take 1 tablet (15 mg total) by mouth daily Active omega-3 fatty acids-fish oil 360-1,200 mg capsule Take 1,200 mg by mouth daily Active simvastatin (ZOCOR) 40 mg tablet Take 1 tablet (40 mg total) by mouth nightly 03/17/20 18 Active tiZANidine (ZANAFLEX) 4 mg tablet Take 1 tablet (4 mg total) by mouth every 6 hours as needed 10/06/20 18 Active tolterodine LA (DETROL LA) 2 mg 24 hr capsule Take 1 capsule (2 mg total) by mouth daily 09/25/[address] (PROTONIX) 40 mg EC tablet Take 1 tablet (40 mg total) by mouth daily 06/19/20 23 Active Active Problems Problem Noted Date Diagnosed Date Varicose veins of bilateral lower extremities with other complications 06/18/2024 Family history of colon cancer 05/05/2024 Personal history of colonic polyps 05/05/2024 Encounter for screening colonoscopy 05/05/2024 Numbness and tingling in both hands 02/26/2022 Primary osteoarthritis of left knee 08/13/2017 Acquired scoliosis 2015 Overview (03/01/2017): Acquired scoliosis 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 Overview (03/01/2017): Varicose veins Stress incontinence in female 04/10/2014 Overview (02/28/2017): Urinary, incontinence, stress female Asthma 04/10/2014 Overview (02/28/2017): Asthma Adenomatous polyp of colon 09/27/2012 Overview (02/28/2017): Adenomatous colon polyp Hyperlipidemia 08/08/2012 Overview (02/28/2017): Hyperlipidemia Unspecified urinary incontinence 12/13/2011 Immunizations Immunization Administration Dates Next Due Influenza, Trivalent, IM (MDV) 09/15/2015 Pneumococcal Conjugate PCV 13 11/14/2015 Pneumococcal Polysaccharide PPV23 11/25/1999 Td, adsorbed 01/07/2004 Tdap 10/28/2015 Social History Tobacco Use Types Packs/Day Years Used Date Smoking Tobacco: Never Smokeless Tobacco: Never Tobacco Cessation:Counseling Given: Not Answered Alcohol Use Standard Drinks/Week Comments No 0 (1 standard drink = 0.6 oz pur e alcohol) Comments No Sex and Gender Information Value Date Recorded Sex Assigned at Not on file 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 Gender Identity Not on file Sexual Orientation Not on file Last Filed Vital Signs Vital Sign Reading Time Taken Comments Blood Pressure 164/95 06/03/2024 4:52 PM CDT Pulse 60 06/03/2024 4:52 PM CDT Temperature - - Respiratory Rate - - Oxygen Saturation 98% 06/27/2018 10: 45 AM CDT Inhaled Oxygen Concentration - - Weight 90.7 kg (199 lb 14.4 oz) 06/03/2024 4:52 PM CDT Height 170.2 cm (5' 7 ) 06/03/2024 4:52 PM CDT Body Mass Index 31.31 06/03/2024 4:52 PM CDT Plan of Treatment Not on file Procedures Procedure Name Priority Date/Time Associated Diagnosis Comments US ABDOMEN COMPLETE Schedule Routine, Read Routine (OP Routine) 02/02/2025 8:35 AM CDT Abdominal pain, unspecified abdominal location from Last 3 Months Results * US Abdomen Complete (02/02/2025 8:35 AM CDT) Anatomical Region Laterality Modality Abdomen N/A Ultrasound 02/05/2025 11:3 8 AM CDT Narrative 02/05/2025 11:41 AM CDT EXAM DESCRIPTION: US ABDOMEN COMPLETE REASON FOR STUDY: Unspecified abdominal pain Epigastric pain for 1 year. TECHNIQUE: Grayscale images acquired of the abdomen and recorded on PACS. Additional selected color Doppler and spectral images recorded. COMPARISON: 06/11/2024 FINDINGS: PANCREAS: Visualized portions of the pancreas are within normal limits. Portions of the pancreatic body and tail are obscured due to bowel gas. LIVER: The liver is grossly normal in echogenicity. There is no definite sonographic evidence of focal hepatic lesion. There is documentation of hepatopetal flow in the portal vein. GALLBLADDER: The gallbladder appears grossly unremarkable without definite evidence of cholelithiasis. The gallbladder wall measures 0.3 cm in thickness. There is no definite sonographic evidence of pericholecystic fluid. BILIARY: There is no intrahepatic or extrahepatic biliary ductal dilatation. Common bile duct measures 0.3 cm . INFERIOR VENA CAVA: Normal flow. AORTA: No aneurysm. RIGHT KIDNEY: The right kidney measures 9.4 x 4.7 x 4.5 cm. There is no definite sonographic evidence of hydronephrosis. There is mild cortical thinning with increased cortical echogenicity. LEFT KIDNEY: The left kidney measures 10.1 x 4.8 x 4.2 cm. There is qrtk-pv-csbdabrs left hydronephrosis. There is mild cortical thinning with mild increased cortical echogenicity. There is a echogenic focus noted in the interpolar region of the left kidney measuring 0.8 cm, which raises the concern for nonobstructing left renal calculus. SPLEEN: The spleen appears grossly unremarkable measures 10.5 x 9.5 x 3.5 cm. PERITONEAL AND PLEURAL SPACES: No ascites or effusions. OTHER: No other significant finding. IMPRESSION: Nmmr-im-bmsgopfe left hydronephrosis. Further evaluation with CT is recommended as clinically indicated. Mild cortical thinning with mild increased cortical echogenicity of the bilateral kidneys, which is likely related to chronic medical renal disease. Echogenic focus in the interpolar region of the left kidney, which raises the concern for nonobstructing left renal calculus. No definite sonographic evidence of cholecystitis or cholelithiasis. THIS IS AN ELECTRONICALLY VERIFIED FINAL REPORT 02/05/2025 11:41 AM - Electronically signed by Phoebe Alston D.O. PS: PS Report ID: [id number] Reading Location: [id number] Procedure Note Phoebe Alston, DO - 02/05/2025 EXAM DESCRIPTION: US ABDOMEN COMPLETE REASON FOR STUDY: Unspecified abdominal pain Epigastric pain for 1 year. TECHNIQUE: Grayscale images acquired of the abdomen and recorded on PACS. Additional selected color Doppler and spectral images recorded. COMPARISON: 06/11/2024 FINDINGS: PANCREAS: Visualized portions of the pancreas are within normal limits. Portions of the pancreatic body and tail are obscured due to bowel gas. LIVER: The liver is grossly normal in echogenicity. There is nodefinite sonographic evidence of focal hepatic lesion. There is documentation of hepatopetal flow in the portal vein. GALLBLADDER: The gallbladder appears grossly unremarkable withoutdefinite evidence of cholelithiasis. The gallbladder wall measures 0.3 cm in thickness. There is no definite sonographic evidence of pericholecystic fluid. BILIARY: There is no intrahepatic or extrahepatic biliary ductaldilatation. Common bile duct measures 0.3 cm . INFERIOR VENA CAVA: Normal flow. AORTA: No aneurysm. RIGHT KIDNEY: The right kidney measures 9.4 x 4.7 x 4.5 cm. There is no definite sonographic evidence of hydronephrosis. There is mild cortical thinning with increased cortical echogenicity. LEFT KIDNEY: The left kidney measures 10.1 x 4.8 x 4.2 cm. There is kudo-kp-oaefijub left hydronephrosis. There is mild cortical thinningwith mild increased cortical echogenicity. There is a echogenic focus noted inthe interpolar region of the left kidney measuring 0.8 cm, which raises the concern for nonobstructing left renal calculus. SPLEEN: The spleen appears grossly unremarkable measures 10.5 x 9.5 x3.5 cm. PERITONEAL AND PLEURAL SPACES: No ascites or effusions. OTHER: No other significant finding. IMPRESSION: Gvba-bv-khutknnr left hydronephrosis. Further evaluation with CT is recommended as clinically indicated. Mild cortical thinning with mild increased cortical echogenicity of the bilateral kidneys, which is likely related to chronic medical renaldisease. Echogenic focus in the interpolar region of the left kidney, which raisesthe concern for nonobstructing left renal calculus. No definite sonographic evidence of cholecystitis or cholelithiasis. THIS IS AN ELECTRONICALLY VERIFIED FINAL REPORT 02/05/2025 11:41 AM - Electronically signed by Phoebe Alston D.O. PS: PS Report ID: [id number] Reading Location: [place] [address] Durga Fischer MD [facility] PROCEDURES Final Result from Last [address] [place] [address] MEDICARE [facility] MEDICARE MEDICARE [facility] BLUE CROSS MEDICARE SUPPLEMENT MEDICARE [facility] MEDICARE SUPPLEMENT Advance Directives For more information, please contact: [phone] Documents on File Type Date Recorded Patient Ore Smelter Expl anation ADVANCE DIRECTIVE 02/27/2019 8:29 AM Care Teams Chain Splitter Relationship Specialty Start Date End Date Durga Fischer MD [address] [place] [address] PCP - General Internal Medicine 04/29/24
--- OUTSIDE RECORDS SUMMARY | 2025-03-11 08:55 | XMS_ITS | Clinical Summary ---
Author Organization [facility] Address [address] [place] [address] Care Team Providers Care Liquid Hydrogen Plant Operator Name Role Phone Durga Fischer MD Primary Care Provider + Allergies Active Allergy Reactions Criticality Noted Date [...] Overview (02/28/2017): Hyperlipidemia Unspecified urinary incontinence 12/13/2011 Encounters Date Type Department Care Team Description 02/02/2025 7:38 AM CDT - 02/02/2025 11:59 PM CDT Hospital Encounter [facility] 1 [place] [address] Abdominal pain, unspecified abdominal location Discharge Disposition: Discharge to home or self care 01/28/2025 Hospital Encounter [facility] [address] [place] [address] Darian Sauer MD 01/25/2025 Telephone [facility] Gastroenterology at [address] [place] [address] Jack Garza MA from Last 3 Months Immunizations Immunization Administration Dates Next Due Influenza, Trivalent, IM (MDV) 09/15/2015 Pneumococcal Conjugate PCV 13 11/14/2015 Pneumococcal Polysaccharide PPV23 11/25/1999 Td, adsorbed 01/07/2004 Tdap 10/28/2015 Surgical History Surgery Date Site/Laterality Comments OTHER SURGICAL HISTORY 1970 [facility] HERNIA REPAIR OTHER SURGICAL HISTORY 1972 INFECTION / SCARRING: HAZEL/ BSO ?APPY CATARACT EXTRACTION Cataract extraction Medical History Medical History Date Comments Hx Other Medical 2010 FX L ANKLE Hx Other Medical INFECTION / SC ARRING Hypertension Hypertension Hx Other Medical high cholestero l; Comments: SAVANNAH 11/29/2015 - Family History Medical History Relation Name Comments Diabetes type II Father Diabetes -T ype 2; Heart disease Father Heart disease; Heart failure Father Congestive hea rt failure; Prostate cancer Maternal Grandfather Canc er -prostate; Coronary artery disease Mother Lito nary artery disease, premature; Heart disease Mother Heart disease; Uterine cancer Mother Cancer -uteri ne; Other Other Family history of htn; Other Sister 1 Cancer -ENT; Colon cancer Sister 2 Cancer -colon; Relation Name Status Comments Father Maternal Grandfather Mother Other Sister 1 Sister 2 Social History Tobacco Use Types Packs/Day Years Used Date Smoking Tobacco: Never Smokeless Tobacco: Never Tobacco Cessation:Counseling Given: Not Answered Alcohol Use Standard Drinks/Week Comments No 0 (1 standard drink = 0.6 oz pur e alcohol) Comments No Sex and Gender Information Value Date Recorded Sex Assigned at Not on file 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 Gender Identity Not on file Sexual Orientation Not on file Obstetrics History Last Filed Vital Signs Vital Sign Reading [...] 06/03/2024 4:52 PM CDT Plan of Treatment Health Maintenance Due Date Last Done Comments Depression Screening 1940 Fall Risk Assessment 1940 Hepatitis B Screening 1958 Well Visit 65+ 2005 Zoster Vaccine (2 of 3) 09/25/2013 07/31/2013 Osteoporosis Screening-Bone Density Scan 12/04/2020 12/04/2018, 12/04/2018 Covid-19 Vaccine (5 - 4-2 5 season) 2024 02/23/2022, 09/21/2021, 02/03/2021, Additional history exists Influenza Vaccine (Season Ended) 2025 08/14/2021, 08/11/2020, 08/25/2019, Additional history exists DTaP/Tdap/Td Vaccine (2 - Td or Tdap) 10/28/2025 10/28/2015, 01/07/2004 Pneumococcal vaccine 65+ Completed 016, 11/14/2015, 09/19/2012, Additional history exists Procedures Procedure Name Priority Date/Time Associated Diagnosis [...] x 4.8 x 4.2 cm. There is jrty-aj-eptqqdez left hydronephrosis. There is mild cortical thinning [...] effusions. OTHER: No other significant finding. IMPRESSION: Bnkm-zq-zxbwivju left hydronephrosis. Further evaluation with CT is [...] Electronically signed by Phoebe Alston D.O. PS: ALANNA Report ID: [id number] Reading Location: [id number] Procedure Note Phoebe Alston DO - 02/05/2025 EXAM DESCRIPTION: US ABDOMEN [...] x 4.8 x 4.2 cm. There is gbkj-yk-jyujiwdb left hydronephrosis. There is mild cortical thinningwith mild increased cortical echogenicity. There is a echogenic focus noted inthe interpolar region of the left kidney measuring 0.8 cm, which raises the concern for nonobstructing left renal calculus. SPLEEN: The spleen appears grossly unremarkable measures 10.5 x 9.5 x3.5 cm. PERITONEAL AND PLEURAL SPACES: No ascites or effusions. OTHER: No other significant finding. IMPRESSION: Cwre-tv-fomucivu left hydronephrosis. Further evaluation with CT is [...] Phoebe Alston D.O. PS: PS Report ID: [id number] Reading Location: [id number] Durga Fischer MD [facility] PROCEDURES Final Result from Last 3 Months Insurance [facility]ICARE [facility] MEDICARE MEDICARE [facility] BLUE CROSS MEDICARE SUPPLEMENT MEDICARE [facility] MEDICARE SUPPLEMENT Advance Directives For more information, please contact: [phone] Documents on File Type Date Recorded Patient Take Off Worker Expl anation ADVANCE DIRECTIVE 02/27/2019 8:29 AM Care Teams Liquid Hydrogen Plant Operator Relationship Specialty Start Date End Date Durga Fischer MD [address] [place] [address] PCP - General Internal Medicine 04/29/24
[2025-03-11 10:19] LABS: Estimated Glomerular Filt Rate 53
== END 2025-03-11 08:36 | disposition home or self-care (01) ==
PROVIDERS: PCP Internal Medicine; Visit Provider Urology
DX: N28.1 Cyst of kidney, acquired (principal); N13.30 Unspecified hydronephrosis
CPT/HCPCS: 74178; Q9967